=== PATIENT | male | born 1980 | race Caucasian/White ===

== ENCOUNTER 2016-10-28 15:19 | Emergency (ER) | payer OTHER ==
[~2016-10-28] VITALS: Ht 175.3 cm; Wt 72.6 kg
--- NOTE | 2016-10-28 15:19 | NUR ---
Patient was BIBA at this time.
[2016-10-28 15:27] VITALS: BP 92/53
[2016-10-28] MEDS ORDERED: LEVE250T1 PO (15:31)
--- NOTE | 2016-10-28 15:53 | NUR ---
Patient taken to bed 05 via gurney per EMS.
--- NOTE | 2016-10-28 15:55 | NUR ---
36M BIBA [facility] C/O SEIZURE; PER [facility], PT HAD 2 SEIZURES LASTING APPROXIMATELY 15-20 SECONDS, BACK TO BACK, WITNESSED BY MOTHER/BY STANDERS X TODAY; PT A&OX4, PERRLA, BL LUNG SOUNDS CLEAR, RR EVEN/UNLABORED, SKIN IS WARM/DRY/INTACT AT THIS TIME; PT C/O VOMITING, BUT DENIES DIARRHEA AT THIS TIME; ABDOMEN SOFT, NON-TENDER, ACTIVE BOWEL SOUNDS X 4 QUADRANTS; PT HAS HX OF SEIZURES, TAKES KEPRA, BUT STATES HAS BEEN OUT OF MEDICATION; PT DENIES ANY PAIN OR DISCOMFORT AT THIS TIME; SEIZURE PRECAUTIONS IN PLACE; PT PLACED ON MONITOR, RESTING IN BED W/ HOB ELEVATED AND IN LOWEST POSITION; POSITIONED FOR COMFORT; ER MD MADE AWARE OF STATUS. WILL CONTINUE TO MONITOR.
--- NOTE | 2016-10-28 16:05 | NUR ---
Dr. Hidalgo evaluating patient at bedside.
[2016-10-28] MEDS ORDERED: levETIRAcetam 500 MG TAB PO ONE (16:15)
[2016-10-28] MEDS ORDERED: ONDANSETRON 4 MG/2 ML VIAL IVP ONE (16:15)
[2016-10-28] MEDS ORDERED: NACL 0.9% 1,000 ML IV ONE (16:20)
--- NOTE | 2016-10-28 16:38 | NUR ---
Tara moctezuma in [facility] - 10/28/16 at 1639 by LISA JOSEIS UNAVAILABLE AT THIS TIME; PHARMACY CALLED FOR MEDICATION; WILL CONTINUE TO MONITOR.
--- NOTE | 2016-10-28 17:25 | NUR ---
Patient appears to be resting comfortably in bed. Vital Signs within normal limits. Respirations even and unlabored. NO ACUTE DISTRESS NOTED AT THIS TIME. WILL CONTINUE TO MONITOR.
--- NOTE | 2016-10-28 17:30 | NUR ---
IV removed, catheter intact and site benign. Applied folded 4x4 gauze and tape to stop bleeding. PT TOLERATED PROCEDURE WELL.
[2016-10-28 17:35] VITALS: BP 109/65
--- NOTE | 2016-10-28 17:35 | NUR ---
Patient discharged with v/s stable. Written and verbal after care instructions given and explained. Patient alert, oriented and verbalized understanding of instructions. Ambulatory with steady gait. All questions addressed prior to discharge. ID band removed. Patient advised to follow up with PMD. Rx of KEPRRA 750MG given. Patient educated on indication of medication including possible reaction and side effects. Opportunity to ask questions provided and answered.
== END 2016-10-28 17:35 | disposition home or self-care (01) ==
LOC: MED 15:19
DX: R56.9 Unspecified convulsions (principal); F17.210 Nicotine dependence, cigarettes, uncomplicated
CPT/HCPCS: 96361; 96374; 99284; J2405; J7030